=== PATIENT | male | born 1970 | race African-American/Black ===

== ENCOUNTER 2016-11-21 15:00 | Inpatient (IN) | payer OTHER ==
--- NOTE | ~2016-11-21 | PN ---
Unit #: [id number] #: [id number] Patient: ASHLEY ARNDT [id number] [facility] [address] [place] [address] [id number] I MR#: [id number] NAME: ASHLEY ARNDT ROOM: [facility] Age: 46 Sex: M Admission Date: 11/21/2016 : 1970 Attending Physician: Jose Guadalupe Otto M.D. Admitting Physician: Jose Guadalupe Otto M.D. Primary Care Physician: Lazarus Doctor Not In System [facility] PROGRESS NOTES DATE 11/23/2016 DISCUSSION The patient is abed today. He continues to complain of significant physical discomfort related to opiate withdrawal and is complaining of some hearing loss in his left ear. I will ask for a med consult related to this complaint. Dictated by... Jose Guadalupe Otto M.D. MARY/sunita TD: 11/23/2016 21:25 JOB #: [id number] [facility] PROGRESS NOTES Page 1 of 1 X Jose Guadalupe Otto MD PROGRESS NOTE
--- NOTE | ~2016-11-21 | PA ---
Unit #: [id number] #: [id number] Patient: ASHLEY ARNDT [id number] [facility] [address] [place] [address] [id number] I MR#: [id number] NAME: ASHLEY ARNDT ROOM: 83 Age: 46 Sex: M Admission Date: 11/21/2016 : 1970 Date of Assessment: 11/22/2016 Attending Physician: Jose Guadalupe Otto M.D. Admitting Physician: Jose Guadalupe Otto M.D. Primary Care Physician: Generic Doctor Not In System PSYCHIATRIC ASSESSMENT IDENTIFYING INFORMATION The patient is a 46-year-old male admitted to the [address] [place] [address] for opioid and alcohol detox. INFORMANT(S) Patient. RELIABILITY Good. CHIEF COMPLAINT None given. HISTORY OF PRESENT ILLNESS The patient is a 46-year-old male who is from [place], [place]. He is in the [facility] to enter treatment at the [facility] but has been using and was sent to this facility from the [facility] secondary to his ongoing use of cocaine, heroin and alcohol. The patient also reports a history of abuse of Xanax and cannabis. The patient at times having been in chemical dependence treatment in the past. He is originally from [place] and had come to [facility] for treatment at the [facility]. He denies current suicidal or homicidal ideation. He is hepatitis C positive. PAST PSYCHIATRIC HISTORY As above. FAMILY HISTORY Noncontributory. SOCIAL HISTORY The patient is originally from [place]. He is presently unemployed and will seek residential treatment at the [facility] upon his discharge from this facility. MEDICAL HISTORY Significant for the aforementioned history of hepatitis C. The patient also reports a history of eczema and asthma. MEDICATION HISTORY None. ALLERGIES Unit #: [id number] #: [id number] Patient: ASHLEY ARNDT None. SUBSTANCE ABUSE HISTORY As noted above and patient does have a history of intravenous drug use. MENTAL STATUS EXAM At this time, reveals the patient to be a well-developed, well-nourished male appearing stated age. He appears to be in moderate physical distress. During interview, he is awake, alert, oriented in all spheres. His mood is dysphoric. His affect constricted. Speech is generally relevant and coherent. There are no gross deficits in memory or cognition noted. Intelligence is judged to be in average range based on fund of knowledge. The patient is cooperative throughout the interview. He is currently denying suicidal or homicidal ideation or psychotic features. Judgement and insight appear to be intact. ASSETS AND LIABILITIES Patient's assets, motivation for change. Liabilities, lack of resources. ADMITTING DIAGNOSES 1. Opioid use disorder. 2. Alcohol use disorder. 3. Cocaine use disorder. 4. Cannabis use disorder. 5. Sedative/hypnotic disorder. 6. Hepatitis C. 7. Asthma. 8. Eczema. PSYCHIATRIC PLAN/TREATMENT GOALS The patient remains hospitalized for safety and stabilization. Routine detoxification protocol to cover alcohol, opioids and sedative/hypnotics has been initiated. The patient will participate in appropriate lin and milieu activities. DISCHARGE PLANNING He will followup through the auspices of [facility]. ESTIMATED LENGTH OF STAY Five to seven days. Dictated by... Jose Guadalupe Otto M.D. MARY/sunita TD: 11/22/2016 19:52 JOB #: [id number] Unit #: [id number] #: [id number] Patient: ASHLEY ARNDT PSYCHIATRIC ASSESSMENT Page 1 of 1 X Jose Guadalupe Otto MD X PSYCHIATRIC ASSESSMENT
--- NOTE | ~2016-11-21 | PN ---
Unit #: [id number] #: [id number] Patient: ASHLEY ARNDT [id number] [facility] [address] [place] [address] [id number] I MR#: [id number] NAME: ASHLEY ARNDT ROOM: [facility] Age: 46 Sex: M Admission Date: 11/21/2016 : 1970 Attending Physician: Jose Guadalupe Otto M.D. Admitting Physician: Jose Guadalupe Otto M.D. Primary Care Physician: Lazarus Doctor Not In System [facility] PROGRESS NOTES DATE 11/27/2016 DISCUSSION The patient is more active within the therapeutic milieu and appears significantly brighter. Should he sustain progress discharge will likely take place tomorrow. Dictated by... Jose Guadalupe Otto M.D. CB/sharri TD: 11/28/2016 04:17 JOB #: [id number] [facility] PROGRESS NOTES Page 1 of 1 X Jose Guadalupe Otto MD X PROGRESS NOTE
--- NOTE | ~2016-11-21 | PN ---
Unit #: [id number] #: [id number] Patient: ASHLEY ARNDT [id number] [facility] [address] [place] [address] [id number] I MR#: [id number] NAME: ASHLEY ARNDT ROOM: [facility] Age: 46 Sex: M Admission Date: 11/21/2016 : 1970 Attending Physician: Jose Guadalupe Otto M.D. Admitting Physician: Jose Guadalupe Otto M.D. Primary Care Physician: Lazarus Doctor Not In System [facility] PROGRESS NOTES DATE 11/25/2016 DISCUSSION The patient is in somewhat brighter spirits today and his detox continues uneventfully. Should he sustain progress discharge should take place within the next day or so. Dictated by... Jose Guadalupe Otto M.D. CB/sharri TD: 11/26/2016 02:55 JOB #: [id number] [facility] PROGRESS NOTES Page 1 of 1 X Jose Guadalupe Otto MD X PROGRESS NOTE
--- NOTE | ~2016-11-21 | DS ---
Unit #: [id number] #: [id number] Patient: ASHLEY ARNDT [id number] [facility] [address] [place] [address] [id number] MR#: [id number] NAME: ASHLEY ARNDT ROOM: [facility] Age: 46 Sex: M Admission Date: 11/21/2016 : 1970 Discharge Date: 11/28/2016 Attending Physician: Jose Guadalupe Otto M.D. Primary Care Physician: Generic Doctor Not In System DISCHARGE SUMMARY REASON FOR ADMISSION The patient is a 46-year-old white male, who was admitted with a history of cocaine and alcohol use. HOSPITAL COURSE The patient was admitted to the [facility], and placed on suicide precautions. He did initially exhibit significant symptoms of opioid withdrawal, but as his stay in the hospital progressed, he became more active within the therapeutic milieu and appeared significantly improved. By 11/28, the patient was in bright spirits and exhibited no signs or symptoms of withdrawal. He requested discharge and it was so ordered. FINAL DIAGNOSES 1. Alcohol use disorder. 2. Opioid use disorder. 3. Cocaine use disorder. 4. Sedative hypnotic use disorder. 5. History of closed head injury. 6. Hepatitis C. DISCHARGE MEDICATIONS The patient is discharged on the following medications, 1. Debrox 0.6 mg b.i.d. for earwax buildup. 2. Proventil HFA 2 puffs b.i.d. p.r.n. shortness of air. DISCHARGE INSTRUCTIONS No dietary or physical restrictions were placed upon the patient at the time of discharge. FOLLOWUP Followup will take place through the auspices of [facility] resources. PROGNOSIS Considered good. Dictated by... Jose Guadalupe Otto M.D. MARY/dae TD: 11/29/2016 11:15 Unit #: [id number] #: [id number] Patient: ASHLEY ARNDT JOB #: [id number] DISCHARGE SUMMARY Page 1 of 1 X Jose Guadalupe Otto MD X DISCHARGE SUMMARY
--- NOTE | ~2016-11-21 | PN ---
Unit #: [id number] #: [id number] Patient: ASHLEY ARNDT [id number] [facility] [address] [place] [address] [id number] MR#: [id number] NAME: ASHLEY ARNDT ROOM: [facility] Age: 46 Sex: M Admission Date: 11/21/2016 : 1970 Attending Physician: Jose Guadalupe Otto M.D. Admitting Physician: Jose Guadalupe Otto M.D. Primary Care Physician: Generic Doctor Not In System [facility] PROGRESS NOTES DATE 11/26/2016 DISCUSSION The patient remains somewhat somatically preoccupied, particularly with regard to his blood sugar stating that he had recently tested positive for "diabetes." His blood sugars in the hospital have tended to be normal, and I have spoken with the patient regarding his need to follow up once discharged from the hospital. Discharge should take place by tomorrow. Dictated by... Jose Guadalupe Otto M.D. CB/bzg TD: 11/26/2016 14:48 JOB #: [id number] [facility] PROGRESS NOTES Page 1 of 1 X Jose Guadalupe Otto MD PROGRESS NOTE
--- NOTE | ~2016-11-21 | PN ---
Unit #: [id number] #: [id number] Patient: ASHLEY ARNDT [id number] [facility] [address] [place] [address] [id number] I MR#: [id number] NAME: ASHLEY ARNDT ROOM: [facility] Age: 46 Sex: M Admission Date: 11/21/2016 : 1970 Attending Physician: Jose Guadalupe Otto M.D. Admitting Physician: Jose Guadalupe Otto M.D. Primary Care Physician: Generic Doctor Not In System [facility] PROGRESS NOTES DATE 11/24/2016 DISCUSSION The patient remains seclusive to room with little participation within the therapeutic milieu. He continues to complain of ear discomfort and headache as well as some blurred vision. I have requested that the nurse practitioner see the patient regarding his complaints of ear pain. Dictated by... Jose Guadalupe Otto M.D. MARY/sunita TD: 11/24/2016 14:18 JOB #: [id number] [facility] PROGRESS NOTES Page 1 of 1 X Jose Guadalupe Otto MD X PROGRESS NOTE
--- NOTE | ~2016-11-21 | CO ---
Unit #: [id number] #: [id number] Patient: ASHLEY ARNDT [id number] [facility] [address] [place] [address] [id number] I MR#: [id number] NAME: ASHLEY ARNDT ROOM: [facility] Age: 46 Sex: M Admission Date: 11/21/2016 : 1970 Attending Physician: Jose Guadalupe Otto M.D. Primary Care Physician: Generic Doctor Not In System Consultation Date: 11/24/2016 CONSULTATION REPORT ORDERING PROVIDER Dr. Otto. REASON FOR CONSULTATION Hearing loss. SUBJECTIVE The patient reports that he has had muscle tearing out of his left ear, for what he describes as ears. He denies pain in his ear except when he tries to pick a cotton swab in there. He has had no troubles with his left ear. He denies any drainage, congestion, or other signs of allergies. He denies any other neurologic complaints. OBJECTIVE Otoscopic exam reveals completely blocked canal, full of cerumen. The cerumen appears hard and dark. ASSESSMENT Cerumen impaction. PLAN Plan is to use Debrox and follow up with PCP if no relief. Dictated by... Pato Figueroa/dae TD: 11/26/2016 02:44 JOB #: [id number] Unit #: [id number] #: [id number] Patient: ASHLEY ARNDT CONSULTATION REPORT Page 1 of 1 X DANIELLE MADRIGAL APRN X CONSULTATION REPORT
--- NOTE | ~2016-11-21 | HP ---
Unit #: [id number] #: [id number] Patient: KEITH ARNDT [id number] [place] [address] [id number] I MR#: [id number] NAME: KEITH ARNDT ROOM: 83 Age: 46 Sex: M Admission Date: 11/21/2016 : 1970 Attending Physician: Jose Guadalupe Otto M.D. Admitting Physician: Jose Guadalupe Otto M.D. Primary Care Physician: Lazarus Doctor Not In System HISTORY AND PHYSICAL HISTORY OF PRESENT ILLNESS Keith is a 46 year old admitted to [facility] because of his drug use. PAST MEDICAL HISTORY 1. History of illicit substance abuse to include IV heroin, cocaine and benzodiazepines. 2. History of alcohol abuse. 3. History of CHI. 4. Hepatitis C. 5. History of withdrawal seizures. PAST SURGICAL HISTORY Fractured pelvis with ORIF. ALLERGIES No known drug allergies. SOCIAL HISTORY He smokes greater than 1 pack per day. Drinks alcohol on a daily basis. Admits to a long history of illicit substance abuse to include IV drugs. FAMILY HISTORY Medically noncontributory. REVIEW OF SYSTEMS CONSTITUTIONAL: No fever or chills. HEENT: Patient does report that he fell approximately 4 days prior to this admission sustaining a large bruise to the right side of his face. CARDIOVASCULAR: Denies chest pain, irregular heart rhythm or palpitations. CHEST: Denies shortness of breath or cough. No hemoptysis. GASTROINTESTINAL: Denies nausea, vomiting, diarrhea or chronic constipation. ENDOCRINE: Denies history of increased thirst or urination. No recent significant weight loss or gain. GENITOURINARY: Denies dysuria, frequency, or hematuria. SKIN: Denies any rashes. HEMATOLOGIC: Denies history of increased bleeding or bruising. MUSCULOSKELETAL: Denies any hot, swollen joints. No generalized muscle pain. NEUROLOGIC: Denies problems with vision or speech. No frequent, severe headaches. No numbness, tingling or weakness in any extremities. Denies loss of bladder or bowel control. Unit #: [id number] #: [id number] Patient: KEITH ARNDT CURRENT MEDICATIONS Detox protocol. PHYSICAL EXAMINATION GENERAL: Alert, well-nourished, in no apparent distress. VITAL SIGNS: Blood pressure 120/70, heart rate 70, respirations 16, temperature 98.6. WEIGHT: 145. HEIGHT: 5 feet 11 inches. SKIN: Warm and dry without rash. He does have a large bruise across the right side of his forehead and right orbit. Skin is intact. HEENT: Normocephalic. TMs not viewed. Oral and nasal passages clear. Conjunctivae clear. PERRLA. EOMs intact. NECK: Supple without lymphadenopathy or thyromegaly. HEART: Regular rate and rhythm without murmur. LUNGS: Clear. ABDOMEN: Soft, nontender. : Not done. EXTREMITIES: No evidence of cyanosis, clubbing or edema. Moves all without focal deficit. NEUROLOGICAL: Grossly within normal limits. Cranial Nerves: II: Visual garcia are intact. III, IV AND : Extraocular movements are intact. Pupils are equal, round and reactive to light. V: Facial sensation is grossly normal. VII: Facial movements and expression are normal. VIII: Auditory acuity grossly intact. IX, X: Uvula is midline. Phonation is normal. XI: Patient shrugs shoulders and turns head normally. XII: Tongue protrudes in the midline. Sensory and Motor Function: Sensory and motor sensation is grossly normal. Motor: moves all extremities well. Coordination: Gait is normal. Deep Tendon Reflexes: Intact. IMPRESSION Psychiatric admission. RECOMMENDATIONS PSYCHIATRIC: Per psychiatrist. MEDICAL: See no contraindication to participate in facility's activities. MEDICAL PROGNOSIS Good. MEDICAL CONDITION Stable. Dictated by... Avis Kay P.A.-C. for Sari Diggs/sunita TD: 11/22/2016 20:53 JOB #: [id number] Unit #: [id number] #: [id number] Patient: KEITH ARNDT HISTORY AND PHYSICAL Page 1 of 1 X Avis Kay HISTORY AND PHYSICAL
[2016-11-22 09:57] LABS: BASOPHIL% 0.5 % (0-2.5); EOSINOPHIL# 0.1 X10e3 (0-0.7); EOSINOPHIL% 1.5 % (0.0-7.0); HEMATOCRIT 42.4 % (38.0-50.0); LYMPHOCYTE% 44.5 % (17.0-45.0); MEAN CELL VOLUME 90.1 FL (83-96); MEAN CORPUSCULAR HEMOGLOBIN 29.7 PG (28-34); MEAN PLATELET VOLUME 8.3 FL (6.5-11.5); MONOCYTE# 0.8 X10e3 (0-1.0); NEUTROPHIL# 2.8 X10e3 (1.5-7.1); NEUTROPHIL% 41.5 % (40-75); PLATELET COUNT 191 X10e3 (140-420); RED BLOOD COUNT 4.71 X10e (3.90-5.60); RED CELL DISTRIBUTION WIDTH 12.6 % (11.0-15.5); WHITE BLOOD COUNT 6.8 X10e3 (4.0-10.5)
[2016-11-22 10:05] LABS: DIFF IND NO
[2016-11-22 10:16] LABS: ALBUMIN SERUM 3.7 g/dL (3.5-5.0); BILIRUBIN,TOTAL 0.5 mg/dL (0.2-2.0); BUN/CREATININE RATIO 15.71; CALCIUM SERUM 9.2 mg/dL (8.4-10.2); CREATININE SERUM 0.7 mg/dL (0.6-1.4); GLOM FILT RATE Estimated 132.1 mL/min (>60); POTASSIUM 3.7 mmol/L (3.5-5.1); PROTEIN TOTAL SERUM 7.6 g/dL (6.0-8.3)
[2016-11-25 11:49] LABS: URINE APPEARANCE CLEAR; URINE BILIRUBIN NEG (NEG); URINE BLOOD NEG (NEG); URINE COLOR DK YELLOW; URINE GLUCOSE NEG (NEG); URINE KETONE NEG (NEG); URINE LEUKOCYTE ESTERASE NEG (NEG); URINE NITRATE NEG (NEG); URINE PH 6.5 (5-8); URINE PROTEIN NEG (NEG); URINE SPECIFIC GRAVITY 1.009 (1.003-1.035); URINE UROBILINOGEN 0.2 MG/DL (NEG)
[2016-11-25 12:23] LABS: AMPHETAMINE NEG (NEG); BARBITURATES NEG (NEG); BENZODIAZEPINES NEG (NEG); COCAINE NEG (NEG); MARIJUANA NEG (NEG); OPIATES NEG (NEG); TRICYCLIC ANTIDEPRESSANTS NEG (NEG); U METHADONE NEG (NEG)
[2016-11-26 16:04] LABS: HA AB IGM (HEPPAN) Nonreactive (()); HB CORE AB IGM (HEPPAN) Nonreactive (Nonreactive); HB S AG (HEPPAN) Nonreactive (Nonreactive); HEP C AB (HEPPAN) Reactive (Nonreactive)
== END 2016-11-28 16:10 | DRG 897 ==
LOC: P1E 16:57
PROVIDERS: Specialist
PROC: HZ2ZZZZ Detoxification Services for Substance Abuse Treatment (ICD-10-PCS; principal; 2016-11-21)
DX: F11.10 Opioid abuse, uncomplicated (principal); F10.10 Alcohol abuse, uncomplicated; F13.10 Sedative, hypnotic or anxiolytic abuse, uncomplicated; F14.10 Cocaine abuse, uncomplicated; F12.10 Cannabis abuse, uncomplicated; B19.20 Unspecified viral hepatitis C without hepatic coma; J45.909 Unspecified asthma, uncomplicated; L30.9 Dermatitis, unspecified; F17.210 Nicotine dependence, cigarettes, uncomplicated; H61.22 Impacted cerumen, left ear
CPT/HCPCS: 80053; 80074; 80307; 81003; 82947; 85025; 86592; 87522; 87806; J2550